=== PATIENT | female | born 1980 | race Caucasian/White ===

== ENCOUNTER 2018-04-13 01:23 | Outpatient (CLI) | payer BC ==
[~2018-04-13] VITALS: Ht 167.6 cm; Wt 77.1 kg
[2018-04-13] MEDS ORDERED: ACETAMINOPHEN 500 MG TABLET ONE (02:09)
[2018-04-13 02:17] LABS: MICROSCOPIC INDICATED
[2018-04-13] MEDS ORDERED: ACETAMINOPHEN 500 MG TABLET PO ONE (02:30)
[2018-04-13 02:48] LABS: BASOPHILS # (AUTO) 0.03 x10^3/uL (0-0.1); BASOPHILS % (AUTO) 0 % (0-1); EOSINOPHILS # (AUTO) 0.22 x10^3/uL (0-0.4); EOSINOPHILS % (AUTO) 2 % (1-7); LYMPHOCYTES % (AUTO) 16 % (22-44); MD NO; MEAN CORPUSCULAR HEMOGLOBIN 32.8 pg (27.0-34.8); MEAN CORPUSCULAR HGB CONC 34.1 g/dL (32.4-35.8); MEAN PLATELET VOLUME 6.9 fL (7.4-10.4); MONOCYTES # (AUTO) 0.69 x10^3/uL (0.2-0.8); MONOCYTES % (AUTO) 7 % (2-9); NEUTROPHILS % (AUTO) 76 % (42-75); PLATELET COUNT 240 x10^3/uL (130-400); RED CELL DISTRIBUTION WIDTH 13.5 % (9.6-15.2)
[2018-04-13 02:56] LABS: ALANINE AMINOTRANSFERASE 12 U/L (12-78); ALBUMIN 2.6 g/dL (3.4-5.0); ANION GAP 9 mmol/L (5-15); CHLORIDE 110 mmol/L (98-107)
[2018-04-13 02:59] LABS: ALKALINE PHOSPHATASE 68 U/L (45-117); BILIRUBIN,TOTAL 0.5 mg/dL (0.2-1.0); CREATININE 0.68 mg/dL (0.55-1.02)
== END 2018-04-13 04:30 | disposition home or self-care (01) ==
LOC: LDOP 01:23
PROVIDERS: ATTEND Student in an Organized Health Care Education/Training Program
DX: O99.89 Other specified diseases and conditions complicating pregnancy, childbirth and the puerperium (principal); O24.414 Gestational diabetes mellitus in pregnancy, insulin controlled; N13.30 Unspecified hydronephrosis; Z3A.30 30 weeks gestation of pregnancy
CPT/HCPCS: 36415; 59025; 76705; 76775; 80053; 81001; 85025; 87086; 99201; G0463